=== PATIENT | female | born 1940 | race Caucasian/White ===

== ENCOUNTER → 2016-12-12 | Outpatient (CLI) | payer MEDICARE, OTHER ==
[2015-10-14 12:06] VITALS: BP 174/84
[~2016-12-12] MED LIST: REGADENOSON 0.4 MG/5 ML DISP.SYRIN. IV ONE
--- NOTE | 2016-12-12 14:08 | RAD ---
APPROVED REPORT Test Type: Pharmacological Stress Nurse/Tech: Naida Mckenzie R.N. Test Indications: dyspnea on exertion Cardiac History: htn, smoker(50yrs), copd Medications: See Electronic Medical Record, Medical History: See Electronic Medical Record Resting ECG: SB with LVH. Resting Heart Rate: 51 bpm Resting Blood Pressure: 184/63mmHg Pretest Chest Pain: None Nurse/Tech Notes S1S2, lungs deminished Consent: The procedure was explained to the patient in lay terms. Informed consent was witnessed. Jonas eout was entered into [employer]. History and Stress Test performed by MARTINE aPz Pharm. Details Pharmacologic stress testing was performed using 0.4mg per 5ml of regadenoson given intravenously ove r 7-10 seconds. Stress Symptoms dyspnea that resolved by the end of recovery period POST EXERCISE Reason for Termination: Infusion complete Max HR: 74 bpm Max Blood Pressure: 165/54mmHg Blood Pressure response to exercise: Abnormal blood pressure response during stress.- SBP decreased Heart Rate response to exercise: wnl Chest Pain: No. Arrhythmia: No. ST Change: No. INTERPRETATION Stress EKG Conclusion: Negative for ischemia. Imaging Protocol IMAGE PROTOCOL: Rest Tc-99m/stress Tc-99m 1 day Rest: Stress: Viability: Radiopharm.Tc99m NtvbakeqfRp17l Sestamibi Dose9.9mCi 33.6mCi Duration 15min. 12min. Img Date 12/12/2016 12/12/2016 Inj-Img [id number]. 60min. Rest Admin Site:IV - Left AntecubitalAdministrator:MARTINE Paz Stress Admin Site: IV - Left AntecubitalAdministrator: MARTINE Paz STRESS DATA End Diast. Vol.66.0mlAv. Heart Rate55.0bpm End Syst. Vol.17.0mlCO Index BSA0.0L/min Myocardial Ruyb336.0gEject. Hsesoeje30.0% Stress Rates Pk. Fill Rate2.61EDV/secLVtime Pk. Fill 200.68msec Pk. Empty Rate3.63ESV/secLVtime Pk. Lzgfn668.62msec 05/06 Pk. Fill1.56EDV/sec Stress Scores Regional WT0.00Summed WT0.00 Regional WM0.00Summed WM1.00 The rest and stress images show normal perfusion, normal contraction and thickening. LV Perf. Quant 17 Seg. SSS0.00 17 Seg. SRS0.00 17 Seg. SDS0.00 Stress Defect Extent (% LAD)0.00Rest Defect Extent (% LAD)0.00Rev. Defect Extent (% LAD)0.00 Stress Defect Extent (% LCX) 0.00Rest Defect Extent (% LCX)0.00Rev. Defect Extent (% LCX)0.00 Stress Defect Extent (% RCA)0.00Rest Defect Extent (% RCA)0.00Rev. Defect Extent (% RCA)0.00 Stress Defect Extent (% JALYN)0.00Rest Defect Extent (% JALYN)0.00Rev. Defect Extent (% JALYN)0.00 Other Information Quality:Good Risk Assessment: Low Risk Conclusion 1. No evidence of EKG changes with stress testing. 2. Normal perfusion at stress/rest. 3. Low risk study. 4. EF > 60%.
== END | disposition home or self-care (01) ==
LOC: NM 09:54
PROVIDERS: ATTEND Family Medicine
DX: I49.5 Sick sinus syndrome (principal); R06.09 Other forms of dyspnea
CPT/HCPCS: 78452; 93017; 96374; 96375; 96376; A9500; J2785

== ENCOUNTER → 2017-05-25 | Outpatient (CLI) | payer MEDICARE, OTHER | END | disposition home or self-care (01) | LOC: ECHO 13:32 | DX: J44.1 Chronic obstructive pulmonary disease with (acute) exacerbation (principal); I10 Essential (primary) hypertension; I36.1 Nonrheumatic tricuspid (valve) insufficiency; I31.3 Pericardial effusion (noninflammatory); I27.20 Pulmonary hypertension, unspecified; R06.09 Other forms of dyspnea | CPT/HCPCS: 93306 ==

== ENCOUNTER → 2017-06-18 | Outpatient (CLI) | payer MEDICARE, OTHER ==
[~2017-06-18] MED LIST changes: +CONTRAST GIVEN MC; -REGADENOSON 0.4 MG/5 ML DISP.SYRIN. IV ONE
[2017-06-18] MEDS: IOHEXOL 300 MG/ML 100ML VIAL. IV ×2 (08:05)
== END | disposition home or self-care (01) ==
LOC: CT 07:45
DX: J43.2 Centrilobular emphysema (principal); I27.21 Secondary pulmonary arterial hypertension; E27.9 Disorder of adrenal gland, unspecified; Z86.711 Personal history of pulmonary embolism
CPT/HCPCS: 71275; Q9967

== ENCOUNTER → 2017-06-24 | Outpatient (CLI) | payer MEDICARE, OTHER ==
[~2017-06-24] MED LIST changes: -CONTRAST GIVEN MC; +FLUMAZENIL 0.5 MG/5 ML VIAL. IV; +LIDOCAINE WITH 8.4% SOD BICARB 3 ML DISP.SYRIN.; +MIDAZOLAM HCL/PF 2 MG/2 ML VIAL.; +NALOXONE 0.4 MG/ML VIAL.; +fentaNYL PF VIAL 100 MCG/2 ML VIAL
[2017-06-24 08:25] LABS: ADD MAN DIFF? NO
[2017-06-24 08:40] LABS: BASO # 0.1 x10^3/uL (0.0-0.2); BASO % 1 % (0-3); EOS # 0.2 x10^3/uL (0.0-0.7); EOS % 2 % (0-3); HEMATOCRIT 42.5 % (36.0-47.0); HEMOGLOBIN 14.1 g/dL (12.0-15.5); LYMPH # 1.7 x10^3/uL (1.0-4.8); LYMPH % 18 % (24-48); MEAN CORPUSCULAR HEMOGLOBIN 31 pg (25-35); MEAN CORPUSCULAR HGB CONC 33 g/dL (31-37); MEAN CORPUSCULAR VOLUME 92 fL (79-100); MONO # 0.7 x10^3/uL (0.0-1.1); MONO % 8 % (0-9); NEUT # 6.9 x10^3uL (1.8-7.7); NEUT % 72 % (31-73); PLATELET COUNT 349 x10^3/uL (140-400); RED BLOOD COUNT 4.61 x10^6/uL (3.50-5.40); RED CELL DISTRIBUTION WIDTH 13.8 % (11.5-14.5); WHITE BLOOD COUNT 9.7 x10^3/uL (4.0-11.0)
[2017-06-24 08:48] LABS: INR 0.9 (0.8-1.1)
[2017-06-24] MEDS: LIDOCAINE WITH 8.4% SOD BICARB 3 ML DISP.SYRIN. IJ ×2 (10:52)
[2017-06-24] MEDS: MIDAZOLAM HCL/PF 2 MG/2 ML VIAL. IV ×2 (10:53)
[2017-06-24] MEDS: fentaNYL PF VIAL 100 MCG/2 ML VIAL IV ×2 (10:53)
== END | disposition home or self-care (01) ==
LOC: INTRAD 08:10
DX: J93.83 Other pneumothorax (principal); J43.9 Emphysema, unspecified; I11.0 Hypertensive heart disease with heart failure; I50.9 Heart failure, unspecified; F17.200 Nicotine dependence, unspecified, uncomplicated
CPT/HCPCS: 32405; 36415; 71046; 77012; 85025; 85610; 87071; 87075; 87102; 87116; 88305; 88341; 88342; 99152; 99153; J2250; J3010

== ENCOUNTER → 2017-07-08 | Outpatient (CLI) | payer MEDICARE, OTHER ==
[2017-07-08] MEDS: GADOBUTROL 7.5 MMOL/7.5 ML VIAL IV (10:57)
== END | disposition home or self-care (01) ==
LOC: MRI 09:33
DX: C34.90 Malignant neoplasm of unspecified part of unspecified bronchus or lung (principal); I10 Essential (primary) hypertension
CPT/HCPCS: 70553; A9585

== ENCOUNTER → 2017-07-09 | Outpatient (CLI) | payer MEDICARE, OTHER | END | disposition home or self-care (01) | LOC: PETSC 07:54 | DX: C34.90 Malignant neoplasm of unspecified part of unspecified bronchus or lung (principal); E27.9 Disorder of adrenal gland, unspecified; I70.0 Atherosclerosis of aorta; R59.1 Generalized enlarged lymph nodes | CPT/HCPCS: 78815; A9552 ==

== ENCOUNTER → 2017-07-10 | Outpatient (CLI) | payer MEDICARE, OTHER ==
[2017-07-10 08:19] LABS: CREATININE 0.8 mg/dL (0.6-1.0)
[2017-07-10 08:19] LABS: GFR 69.7
[2017-07-10] MEDS: GADOBUTROL 7.5 MMOL/7.5 ML VIAL IV (08:45)
== END | disposition home or self-care (01) ==
LOC: MRI 07:37
DX: C34.31 Malignant neoplasm of lower lobe, right bronchus or lung (principal); E27.9 Disorder of adrenal gland, unspecified; I31.3 Pericardial effusion (noninflammatory); K76.9 Liver disease, unspecified
CPT/HCPCS: 36415; 74183; 82565; A9585

== ENCOUNTER → 2017-07-14 | Outpatient (CLI) | payer MEDICARE, OTHER ==
[2017-07-14] MEDS: IOHEXOL 300 MG/ML 100ML VIAL. IV (09:36)
== END | disposition home or self-care (01) ==
LOC: CT 08:45
DX: C34.31 Malignant neoplasm of lower lobe, right bronchus or lung (principal); C25.9 Malignant neoplasm of pancreas, unspecified; D35.01 Benign neoplasm of right adrenal gland; I31.3 Pericardial effusion (noninflammatory); I77.811 Abdominal aortic ectasia; I74.5 Embolism and thrombosis of iliac artery; I70.8 Atherosclerosis of other arteries; J43.9 Emphysema, unspecified; R91.1 Solitary pulmonary nodule
CPT/HCPCS: 74170; Q9967

== ENCOUNTER 2017-07-17 06:53 | Outpatient (CLI) | payer MEDICARE, OTHER ==
[2017-07-17 07:41] LABS: ADD MAN DIFF? NO
[2017-07-17 07:44] LABS: BASO # 0.1 x10^3/uL (0.0-0.2); BASO % 1 % (0-3); EOS # 0.1 x10^3/uL (0.0-0.7); EOS % 2 % (0-3); LYMPH # 1.3 x10^3/uL (1.0-4.8); LYMPH % 15 % (24-48); MEAN CORPUSCULAR HEMOGLOBIN 30 pg (25-35); MEAN CORPUSCULAR HGB CONC 33 g/dL (31-37); MEAN CORPUSCULAR VOLUME 91 fL (79-100); MONO # 0.6 x10^3/uL (0.0-1.1); MONO % 7 % (0-9); NEUT # 6.5 x10^3uL (1.8-7.7); NEUT % 74 % (31-73); PLATELET COUNT 300 x10^3/uL (140-400); RED CELL DISTRIBUTION WIDTH 13.2 % (11.5-14.5); WHITE BLOOD COUNT 8.7 x10^3/uL (4.0-11.0)
[2017-07-17 07:50] LABS: ANION GAP 11 (6-14); BLOOD UREA NITROGEN 15 mg/dL (7-20); CALCIUM 9.1 mg/dL (8.5-10.1); CARBON DIOXIDE 28 mmol/L (21-32); CHLORIDE 107 mmol/L (98-107); CREATININE 0.8 mg/dL (0.6-1.0); GFR 69.7; GLUCOSE 92 mg/dL (70-99); SODIUM 146 mmol/L (136-145)
[2017-07-17 07:56] LABS: PARTIAL THROMBOPLASTIN TIME 31 SEC (24-38); PROTHROMBIN TIME PATIENT 12.4 SEC (11.7-14.0)
[2017-07-17] MEDS ORDERED: LIDOCAINE WITH 8.4% SOD BICARB 3 ML DISP.SYRIN. (08:12)
[2017-07-17] MEDS ORDERED: fentaNYL PF VIAL 100 MCG/2 ML VIAL (08:36)
[2017-07-17] MEDS ORDERED: MIDAZOLAM HCL/PF 2 MG/2 ML VIAL. (08:36)
[2017-07-17] MEDS ORDERED: IOHEXOL 300 MG/ML 100ML VIAL. (09:08)
[2017-07-17] MEDS ORDERED: CONTRAST GIVEN MC (09:15)
[2017-07-17] MEDS: MIDAZOLAM HCL/PF 2 MG/2 ML VIAL. IV (09:38)
[2017-07-17] MEDS: fentaNYL PF VIAL 100 MCG/2 ML VIAL IV (09:39)
[2017-07-17] MEDS: IOHEXOL 300 MG/ML 100ML VIAL. IV (09:40)
[2017-07-17] MEDS: LIDOCAINE WITH 8.4% SOD BICARB 3 ML DISP.SYRIN. IJ (09:40)
== END 2017-07-17 12:15 | disposition home or self-care (01) ==
LOC: INTRAD 06:53
DX: C25.9 Malignant neoplasm of pancreas, unspecified (principal); C34.91 Malignant neoplasm of unspecified part of right bronchus or lung; I50.9 Heart failure, unspecified; I10 Essential (primary) hypertension; J44.9 Chronic obstructive pulmonary disease, unspecified; J40 Bronchitis, not specified as acute or chronic; F17.200 Nicotine dependence, unspecified, uncomplicated; Z79.899 Other long term (current) drug therapy; Z82.49 Family history of ischemic heart disease and other diseases of the circulatory system; E78.00 Pure hypercholesterolemia, unspecified; Z85.53 Personal history of malignant neoplasm of renal pelvis; Z81.8 Family history of other mental and behavioral disorders; Z81.1 Family history of alcohol abuse and dependence
CPT/HCPCS: 36415; 49180; 77012; 80048; 85025; 85610; 85730; 99152; 99153; J2250; J3010; Q9967

== ENCOUNTER → 2017-07-27 | Outpatient (CLI) | payer MEDICARE, OTHER | END | disposition home or self-care (01) | LOC: US 15:29 | DX: C34.31 Malignant neoplasm of lower lobe, right bronchus or lung (principal); M79.605 Pain in left leg | CPT/HCPCS: 93971 ==